=== PATIENT | male | born 1945 | race Caucasian/White ===

== ENCOUNTER 2023-10-28 12:44 | Outpatient (CLI) | payer MEDICARE | END 2023-10-28 12:45 | disposition home or self-care (01) | LOC: CSHMRI 12:44 | PROVIDERS: ATTEND Specialist | DX: M54.12 Radiculopathy, cervical region (principal) | CPT/HCPCS: 72141 ==

== ENCOUNTER 2024-05-08 15:25 | Outpatient (CLI) | payer MEDICARE | END 2024-05-08 15:26 | disposition home or self-care (01) | LOC: CSHRAD 15:25 | PROVIDERS: ATTEND Orthopaedic Surgery | DX: M79.604 Pain in right leg (principal); Z96.651 Presence of right artificial knee joint ==

== ENCOUNTER 2025-06-07 13:22 | Outpatient (CLI) | payer MEDICARE | END 2025-06-07 13:23 | disposition home or self-care (01) | LOC: CSHULT 13:22 | PROVIDERS: ATTEND Family Medicine | DX: N13.30 Unspecified hydronephrosis (principal); N32.89 Other specified disorders of bladder | CPT/HCPCS: 76770 ==